=== PATIENT | female | born 1945 | race Caucasian/White ===

== ENCOUNTER → 2016-05-23 | Outpatient (REF) | payer MEDICARE ==
[~2016-05-23] MED LIST: CIPR500T3 PO; PERCOCET PO
== END | disposition home or self-care (01) ==
LOC: M SMT 17:15
PROVIDERS: ATTEND Urology
DX: C67.9 Malignant neoplasm of bladder, unspecified (principal)

== ENCOUNTER → 2016-06-30 | Outpatient (CLI) | payer MEDICARE ==
--- NOTE | 2016-06-30 16:51 | REP ---
Clinical: Lung screening. History smoking. Technique: Axial noncontrast low-dose imaging from the thoracic inlet to the upper abdomen using lung screening technique. Findings: The bilateral lung metcalf are well-aerated and without consolidation, nodule or mass lesion. Minimal scattered chronic changes are appreciated along with very subtle non solid ground-glass opacity in the anterior right upper lobe and left lower lobe. Tracheobronchial tree is patent. No pleural effusion or pneumothorax. Mediastinum is grossly unremarkable although atherosclerotic changes to the coronary arteries is noted. Impression: Lung-RADS category II. Subtle nonsolid opacity in the RUL and LLL may warrant annual screening. Signed by Nando Kline MD 06/30/2016 04:43 P
== END ==
LOC: M RAD 15:43
PROVIDERS: ATTEND Family Medicine
DX: F17.210 Nicotine dependence, cigarettes, uncomplicated (principal)

== ENCOUNTER → 2016-08-29 | Outpatient (REF) | payer MEDICARE | LOC: M SMT 16:57 | PROVIDERS: ATTEND Urology | DX: C67.9 Malignant neoplasm of bladder, unspecified (principal) ==

== ENCOUNTER → 2016-09-20 | Outpatient (CLI) | payer MEDICARE ==
--- NOTE | 2016-09-20 12:53 | REP ---
CT of the chest without IV contrast: Comparisons 06/30/2016. There is a 10 mm ground-glass density in the right upper lobe on image 37, not significantly changed. There is a 13 mm ground-glass density in the left lower lobe on image 68, not significantly changed. There are no other nodules or masses. There are no acute infiltrates or effusions. There are numerous bulla throughout the lung metcalf bilaterally compatible with bullous emphysema. There is no mediastinal adenopathy or axillary adenopathy. In the absence of IV contrast the study is insensitive for hilar adenopathy. Thoracic aorta is unremarkable. Cardiac size normal. The visualized upper abdominal contents are unremarkable. There is no adrenal mass. Impression: Right upper lobe left lower lobe ground-glass densities, not significantly changed. These are considered Category [address] surveillance is recommended. Signed by Logan Lopez MD 09/20/2016 12:45 P
== END ==
LOC: M RAD 08:59
PROVIDERS: ATTEND Internal Medicine Pulmonary Disease
DX: R91.8 Other nonspecific abnormal finding of lung field (principal)

== ENCOUNTER → 2016-11-28 | Outpatient (REF) | payer MEDICARE | LOC: M SMT 17:01 | PROVIDERS: ATTEND Urology | DX: C67.9 Malignant neoplasm of bladder, unspecified (principal) ==

== ENCOUNTER → 2016-12-29 | Outpatient (CLI) | payer MEDICARE ==
--- NOTE | 2016-12-29 17:40 | REP ---
ULTRASOUND LEFT NECK SOFT TISSUES: Real-time sonographic evaluation of the left neck soft tissues performed in the region of a reported palpable abnormality. There is a hypoechoic nodule with internal blood flow with duplex Doppler evaluation. It is oval in shape and probably represents a lymph node. It measures 8 x 3 x 7 mm. Left parotid gland is visualized and demonstrates no definite internal nodule. Incidental note is made of a nodule in the left lobe of the thyroid which has an approximate diameter of 6 mm. IMPRESSION: At the site of the reported palpable abnormality there appears to be a nonenlarged lymph node. Signed by Logan Nicole MD 12/29/2016 05:45 P
== END ==
LOC: M RAD 13:46
PROVIDERS: ATTEND Family Medicine
DX: R22.1 Localized swelling, mass and lump, neck (principal)

== ENCOUNTER → 2017-03-06 | Outpatient (REF) | payer MEDICARE | LOC: M SMT 17:09 | PROVIDERS: ATTEND Urology | DX: Z85.51 Personal history of malignant neoplasm of bladder (principal) ==

== ENCOUNTER → 2017-06-28 | Outpatient (CLI) | payer MEDICARE ==
[2017-06-28 10:00] LABS: ANION GAP 6 MEQ/L (8-16); BLOOD UREA NITROGEN 20 MG/DL (7-18); CALCIUM LEVEL 9.2 MG/DL (8.8-10.2); CARBON DIOXIDE LEVEL 30 MEQ/L (21-32); CHLORIDE LEVEL 103 MEQ/L (98-107); CHOLESTEROL LEVEL 227 MG/DL (<200); CHOLESTEROL RISK RATIO 5.044 (<5); GLOMERULAR FILTRATION RATE > 60.0 (>39); GLUCOSE, FASTING 93 MG/DL (70-100); HDL CHOLESTEROL 45 MG/DL (>40); LDL CHOLESTEROL 147.8 MG/DL (<100); NON-HDL-C 182 MG/DL; POTASSIUM SERUM 4.1 MEQ/L (3.5-5.1); SODIUM LEVEL 139 MEQ/L (136-145); TRIGLYCERIDES LEVEL 171 MG/DL (<150)
== END ==
LOC: M LAB 09:04
DX: I10 Essential (primary) hypertension (principal)

== ENCOUNTER → 2017-06-28 | Outpatient (CLI) | payer MEDICARE | LOC: M RAD 07:48 | DX: Z12.31 Encounter for screening mammogram for malignant neoplasm of breast (principal); R92.8 Other abnormal and inconclusive findings on diagnostic imaging of breast; Z78.0 Asymptomatic menopausal state; Z80.0 Family history of malignant neoplasm of digestive organs; Z80.3 Family history of malignant neoplasm of breast; Z98.890 Other specified postprocedural states; I10 Essential (primary) hypertension | CPT/HCPCS: 77067 ==

== ENCOUNTER 2017-07-19 06:57 | Day surgery (SDC) | payer MEDICARE ==
[2017-07-19] MEDS: NS 1,000 ML IV (07:15)
[2017-07-19] MEDS ORDERED: PROPOFOL 200 MG/20 ML VIAL As Ordered ×2 (08:03→08:14)
== END 2017-07-19 08:59 | disposition home or self-care (01) ==
LOC: M OPP 06:57
DX: Z12.11 Encounter for screening for malignant neoplasm of colon (principal); Z86.010 Personal history of colon polyps; D12.0 Benign neoplasm of cecum; D12.3 Benign neoplasm of transverse colon; K57.30 Diverticulosis of large intestine without perforation or abscess without bleeding; I10 Essential (primary) hypertension; E78.5 Hyperlipidemia, unspecified; Z85.51 Personal history of malignant neoplasm of bladder; Z92.21 Personal history of antineoplastic chemotherapy; K57.32 Diverticulitis of large intestine without perforation or abscess without bleeding; M48.00 Spinal stenosis, site unspecified; F17.210 Nicotine dependence, cigarettes, uncomplicated; F12.10 Cannabis abuse, uncomplicated; Z88.8 Allergy status to other drugs, medicaments and biological substances; Z79.899 Other long term (current) drug therapy; Z80.0 Family history of malignant neoplasm of digestive organs; Z80.3 Family history of malignant neoplasm of breast; Z80.51 Family history of malignant neoplasm of kidney; Z80.52 Family history of malignant neoplasm of bladder; Z80.42 Family history of malignant neoplasm of prostate; Z80.1 Family history of malignant neoplasm of trachea, bronchus and lung; Z80.49 Family history of malignant neoplasm of other genital organs; Z80.8 Family history of malignant neoplasm of other organs or systems
CPT/HCPCS: 45385

== ENCOUNTER → 2017-09-18 | Outpatient (CLI) | payer OTHER, MEDICARE | LOC: M RAD 10:53 | DX: R91.8 Other nonspecific abnormal finding of lung field (principal) | CPT/HCPCS: 71250 ==

== ENCOUNTER → 2018-04-05 | Outpatient (REF) | payer OTHER ==
[~2018-04-05] MED LIST changes: +CARV6.25 PO; +HYDR-3713; +LOSA100T5 PO; +PRAV20TA2 PO
== END ==
LOC: M SMT 16:23
PROVIDERS: ATTEND Nurse Practitioner Family
DX: C67.9 Malignant neoplasm of bladder, unspecified (principal)
CPT/HCPCS: 88108; G0463

== ENCOUNTER → 2018-04-25 | Outpatient (CLI) | payer MEDICARE ==
[2018-04-25 13:41] LABS: BASO % 0.3 % (0.0-1.0); EOS # 0.2 10^3/uL (0.0-0.50); EOS % 1.4 % (0.0-3.0); HEMATOCRIT 40.9 % (36.0-47.0); HEMOGLOBIN 13.9 g/dl (12.0-15.5); LYMPH # 2.9 10^3/uL (1.5-4.5); LYMPH % 25.7 % (24.0-44.0); MEAN CORPUSCULAR HEMOGLOBIN 31.8 pg (27.0-33.0); MEAN CORPUSCULAR VOLUME 93.6 fl (80.0-96.0); MONO # 0.8 10^3/uL (0.0-0.8); MONO % 7.4 % (0.0-5.0); NEUTROPHILS # 7.3 10^3/uL (1.8-7.7); NEUTROPHILS % 64.8 % (36.0-66.0); PLATELET COUNT, AUTOMATED 263 10^3/uL (150-450); RED BLOOD COUNT 4.37 10^6/uL (4.00-5.40); WHITE BLOOD COUNT 11.3 10^3/uL (4.0-10.0)
[2018-04-25 13:59] LABS: ALBUMIN 4.3 GM/DL (3.2-5.2); ALT/SGPT 17 U/L (12-78); BILIRUBIN,TOTAL 0.4 MG/DL (0.2-1.0); BLOOD UREA NITROGEN 20 MG/DL (7-18); CALCIUM LEVEL 9.6 MG/DL (8.8-10.2); CARBON DIOXIDE LEVEL 29 MEQ/L (21-32); CHLORIDE LEVEL 101 MEQ/L (98-107); CREATININE FOR GFR 0.86 MG/DL (0.55-1.30); GLOMERULAR FILTRATION RATE > 60.0 (>39); GLUCOSE, FASTING 101 MG/DL (70-100); POTASSIUM SERUM 3.8 MEQ/L (3.5-5.1); SODIUM LEVEL 137 MEQ/L (136-145); TOTAL PROTEIN 7.8 GM/DL (6.4-8.2)
== END ==
LOC: M SMT 09:39
PROVIDERS: ATTEND Urology Pediatric Urology
DX: C67.5 Malignant neoplasm of bladder neck (principal)

== ENCOUNTER → 2018-05-16 | Outpatient (CLI) | payer MEDICARE ==
[2018-05-16 14:36] LABS: INR 0.94; PROTHROMBIN TIME 12.7 SECONDS (12.1-14.4)
[2018-05-16 14:37] LABS: PARTIAL THROMBOPLASTIN TIME 33.6 SECONDS (25.4-37.6)
--- NOTE | 2018-05-17 03:52 | REP ---
Clinical: Bladder neoplasm. Preoperative assessment . Comparison: 02/02/2016 . Technique: PA and lateral. Findings: The mediastinum and cardiac silhouette are normal. The lung metcalf are clear and without acute consolidation, effusion, or pneumothorax. The skeletal structures are intact and normal. Impression: 1. No acute cardiopulmonary process. Electronically Signed by Nando Kline MD 05/17/2018 03:43 A
== END ==
LOC: M SMT 10:14
PROVIDERS: ATTEND Urology Pediatric Urology
DX: C67.5 Malignant neoplasm of bladder neck (principal)

== ENCOUNTER → 2018-05-28 | Outpatient (CLI) | payer MEDICARE ==
[~2018-05-28] MED LIST changes: +ISOVUE-370 76% 100ML VIAL (Q9967) As Ordered ONE; +PYRI1TAB5 PO; +TYLE500T78 PO
--- NOTE | 2018-05-29 03:57 | REP ---
Clinical: Urinary bladder cancer. Technique: Axial contrast enhanced images from the thoracic inlet to the upper abdomen with coronal and sagittal re-formations using 100 ml Isovue 370 intravenous contrast material. Comparison: 09/18/2017. Findings: Moderate age-related interstitial changes and mild emphysematous changes including lower lobe bronchiectasis are again noted and similar to prior examination. No acute focal consolidation, significant nodule or mass lesion identified. No pleural effusion. No pneumothorax. Tracheobronchial tree is patent. Nonspecific mediastinal and right hilar lymph nodes measure up to 9.5 mm short axis diameter and remain essentially unchanged. Thoracic aorta, pulmonary vasculature and heart/pericardium are essentially normal for age. No evidence for aneurysm, dissection, cardiomegaly or pericardial effusion. Surrounding musculoskeletal structures without focal osseous abnormality. Impression: 1. Moderate chronic age-related interstitial changes and emphysematous disease with mild bronchiectasis. 2. No acute mediastinal or pleuroparenchymal process appreciated. Specifically, no obvious adenopathy, effusion, nodule or mass lesion identified. Electronically Signed by Nando Kline MD 05/29/2018 03:49 A
--- NOTE | 2018-05-29 04:06 | REP ---
Clinical: Urinary bladder cancer. Technique: Axial precontrast, contrast enhanced, and delayed images of the abdomen and pelvis using oral (per protocol) and 100 ml Isovue 370 intravenous contrast material. Automated dose lowering techniques and/or adjustment according to patient's size were utilized. Comparison: 01/14/2016 Findings: Evaluation of the urinary tract system suggests eight and 2 mm enhancing nodule along the right posterior bladder trigone (best identified on contrast enhanced image 117 and delayed series image 118) which warrants further investigation. The bilateral kidneys and ureters appear normal. Liver, spleen, pancreas, gallbladder, bilateral adrenal glands are normal. The enteric system including stomach, small and large bowel is without obstruction or acute inflammatory process. Normal terminal ileum and cecum identified in the right lower quadrant. Sigmoid diverticulosis noted without acute diverticulitis. Further evaluation the pelvis demonstrates prior hysterectomy. No pelvic fluid or ascites. No free air. No adenopathy. Atherosclerotic changes to the aorta and vasculature noted without aneurysm. Surrounding musculoskeletal structures demonstrate age-related changes without focal osseous abnormality. Impression: 1. 2 mm enhancing soft tissue nodule along the right posterior bladder wall warrant further investigation and follow-up. No other urinary tract pathology is appreciated. No ascites or adenopathy identified. 2. Evidence of prior hysterectomy. 3. Sigmoid diverticulosis without acute diverticulitis. Electronically Signed by Nando Kline MD 05/29/2018 03:58 A
== END ==
LOC: M RAD 07:45
PROVIDERS: ATTEND Urology Pediatric Urology
DX: C67.5 Malignant neoplasm of bladder neck (principal); K57.30 Diverticulosis of large intestine without perforation or abscess without bleeding; J43.9 Emphysema, unspecified; J47.9 Bronchiectasis, uncomplicated
CPT/HCPCS: 71260; 74178; G0463; Q9967

== ENCOUNTER 2018-05-29 05:50 | Day surgery (SDC) | payer MEDICARE ==
[~2018-05-29] VITALS: Ht 157.5 cm; Wt 53.1 kg
[~2018-05-29 05:50] MED LIST changes: -ISOVUE-370 76% 100ML VIAL (Q9967) As Ordered ONE; -PYRI1TAB5 PO; -TYLE500T78 PO
[2018-05-29] MEDS ORDERED: GENTAMICIN 100 MG in APPROPRIATE DILUENT 1 EA IV ONE (06:00)
[2018-05-29] MEDS ORDERED: LR 1,000 ML IV ONE (06:00)
[2018-05-29] MEDS ORDERED: CIPROFLOXACIN 400 MG in APPROPRIATE DILUENT 1 EA IV ONE (06:00)
[2018-05-29] MEDS ORDERED: LIDOCAINE 2% 5ML JELLY UROJET As Ordered ONE ×2 (06:55→08:39)
[2018-05-29] MEDS ORDERED: CONRAY-60 60% 50ML VIAL (Q9961) As Ordered ONE (06:55)
[2018-05-29] MEDS ORDERED: LIDOCAINE 2% INJ 100 MG/5 ML SDV (FOR ANES.) As Ordered ONE (07:16)
[2018-05-29] MEDS ORDERED: PROPOFOL 200 MG/20 ML VIAL As Ordered ONE (07:16)
[2018-05-29] MEDS ORDERED: fentaNYL 100 MCG/2 ML INJECTION (J3010) As Ordered ONE (07:16)
[2018-05-29] MEDS ORDERED: ONDANSETRON 4MG/2ML VIAL (J2405) As Ordered ONE (07:16)
[2018-05-29] MEDS ORDERED: ROCURONIUM BROMIDE 50 MG/5 ML VIAL As Ordered ONE (07:16)
[2018-05-29] MEDS ORDERED: METOCLOPRAMIDE INJ 10MG/2ML VIAL (J2765) As Ordered ONE (07:16)
[2018-05-29] MEDS ORDERED: MIDAZOLAM INJ 2 MG/2 ML VIAL (J2250) As Ordered ONE (07:16)
[2018-05-29] MEDS ORDERED: mitoMYcin 40MG VIAL (J9280 PER 5MG) INTRAVESIC ONE (08:00)
--- NOTE | 2018-05-29 09:04 | ROOPDOC ---
[facility] Report Of Operation Report of Operation DATE OF PROCEDURE: 05/29/18 PREPROCEDURE DIAGNOSES: right bladder mass (medial to the right ureter). POSTPROCEDURE DIAGNOSES: same; s/p TURBT. PROCEDURE: TURBT, retrograde pyelogram, mitomycin instillation (40mg/50ml). SURGEON: Opal Etienne MD [facility] JOSUE ANESTHESIA: see anesthesia record. ESTIMATED BLOOD LOSS: Approximately 5 mL. COMPLICATIONS: none. REMARKS/findings: trigonitis; right lateral bladder mass; normal retrograde SPECIMEN: bladder tumor DESCRIPTION OF PROCEDURE: After informed consent with patient and her , the patient was brought to the operating room suite where a routine time out was completed with the stakeholders of care for the patient. Pt was placed in the lithotomy position. The 24f loop resectoscope easily entered the urethra and was used to resect the tumor precisely and was sent of the table to pathology. Retrogrades were performed without evidence of stationary filling defect. 50ml of mitomycin was then instilled. Pt had a diaper pad place just in case she voids prior to the time expected to keep the medication in place. post void residual is expected to obtained in 1 2 and 3 hours from now (9am, current time). Opal Etienne MD May 29, 2018 09:04
--- NOTE | 2018-05-29 09:10 | REP ---
RETROGRADE PYELOGRAM, FOUR VIEWS: HISTORY: Bladder tumor. Bilateral retrograde pyelograms were performed. There are no definite filling defects in the renal collecting systems. There is no hydronephrosis. Fluoro time 11 seconds. IMPRESSION: Retrograde pyelogram as described. Electronically Signed by Blaine Astudillo MD 05/29/2018 09:15 A
[2018-05-29] MEDS ORDERED: PYRI1TAB5 PO (09:16)
[2018-05-29] MEDS ORDERED: TYLE500T78 PO (09:16)
[2018-05-29] MEDS ORDERED: CIPR500T3 PO (09:16)
[2018-05-29] MEDS ORDERED: LR 1,000 ML IV SCH (09:45)
[2018-05-29] MEDS ORDERED: fentaNYL 100 MCG/2 ML INJECTION (J3010) IV PRN (09:45)
[2018-05-29] MEDS ORDERED: ONDANSETRON 4MG/2ML VIAL (J2405) IV PRN (09:45)
[2018-05-29] MEDS ORDERED: PERCOCET 5MG/325MG TAB PO PRN (09:45)
[2018-05-29] MEDS ORDERED: ACETAMINOPHEN TAB 650MG DOSE (2X325MG) As Ordered ONE (09:58)
[2018-05-29] MEDS ORDERED: ACETAMINOPHEN TAB 650MG DOSE (2X325MG) PO ONE (10:00)
[2018-05-29 11:26] VITALS: BP 147/67
== END 2018-05-29 11:28 | disposition home or self-care (01) ==
LOC: M SDC 05:50
PROVIDERS: ATTEND Urology Pediatric Urology
DX: C67.9 Malignant neoplasm of bladder, unspecified (principal); N30.30 Trigonitis without hematuria; I10 Essential (primary) hypertension; E78.00 Pure hypercholesterolemia, unspecified; J44.9 Chronic obstructive pulmonary disease, unspecified; K57.32 Diverticulitis of large intestine without perforation or abscess without bleeding; M48.00 Spinal stenosis, site unspecified; R06.02 Shortness of breath; Z88.8 Allergy status to other drugs, medicaments and biological substances; Z79.899 Other long term (current) drug therapy; Z87.891 Personal history of nicotine dependence; Z92.21 Personal history of antineoplastic chemotherapy; Z90.710 Acquired absence of both cervix and uterus
CPT/HCPCS: 36415; 51720; 52224; 74420; 86850; 86900; 86901; 88307; J0744; J1580; J2250; J2405; J2765; J3010; J9280; Q9961

== ENCOUNTER → 2018-06-05 | Outpatient (REF) | payer MEDICARE ==
[~2018-06-05] MED LIST changes: +PYRI1TAB5 PO; +TYLE500T78 PO
== END ==
LOC: M SMT 13:12
PROVIDERS: ATTEND Urology Pediatric Urology
DX: C67.9 Malignant neoplasm of bladder, unspecified (principal); I10 Essential (primary) hypertension; Z79.899 Other long term (current) drug therapy
CPT/HCPCS: 51798; 87086; G0463

== ENCOUNTER → 2018-07-31 | Outpatient (CLI) | payer MEDICARE ==
--- NOTE | 2018-07-31 11:28 | REPMRS ---
Patient History The patient states she has not had a clinical breast exam in over a year. Family history of colorectal cancer at age 50 or over in mother, colorectal cancer at age 50 or over in father, breast cancer at age 50 or over in sister, unknown cancer in brother, unknown cancer in brother, unknown cancer in brother, unknown cancer in brother, unknown cancer in brother. Benign radio exam breast specimen, November 23, 2011. Benign localization of breast nodule of the left breast, November 23, 2011. Benign US guided breast biopsy of the left breast, October 20, 2011. 3D TOMOSYNTHESIS WAS PERFORMED. Digital Mammo Screening Bilat: July 31, 2018 - Exam #: [id number] Bilateral CC and MLO view(s) were taken. Technologist: Caren Purdyologist Prior study comparison: June 28, 2017, bilateral digital mammo screening bilat performed at [facility]. February 26, 2013, bilateral digital mammo screening bilat performed at [facility]. FINDINGS: There are scattered fibroglandular densities. There is a fairly symmetric fibroglandular pattern in both breasts. There has been no interval development of masses, areas of architectural distortion or clusters of microcalcifications typical of malignancy. Assessment: BI-RADS/ACR category 2 mammogram. Benign Findings. Recommendation Routine screening mammogram of both breasts in 1 year (for women over age 40). This mammogram was interpreted with the aid of an FDA-approved computer-aided dectection system. Electronically Signed By: Logan Nicole MD 07/31/18 [id number]
== END ==
LOC: M RAD 10:27
PROVIDERS: ATTEND Family Medicine
DX: Z12.31 Encounter for screening mammogram for malignant neoplasm of breast (principal); Z80.3 Family history of malignant neoplasm of breast

== ENCOUNTER 2018-09-15 16:02 | Emergency (ER) | payer MEDICARE ==
[~2018-09-15] VITALS: Ht 157.5 cm; Wt 55.9 kg
[~2018-09-15 16:02] MED LIST changes: -HYDR-4517 PO; -VALI5TAB PO
[2018-09-15] MEDS ORDERED: diazePAM 5 MG TAB PO ONE (16:45)
[2018-09-15] MEDS ORDERED: KETOROLAC 60 MG/2 ML VIAL (J1885) IM ONE (16:45)
--- NOTE | 2018-09-15 17:08 | REP ---
CT lumbar spine without contrast History: Injury There is no disc bulge or herniation at the L1-2 level. There is hypertrophy of the posterior articulating facets. The L1 nerves exit the neural foramina without compression. A diffuse disc bulge is present at the L2-3 level. There is hypertrophy of the ligamenta flava and posterior articulating facets. These findings produce moderate central canal stenosis. The L2 nerves exit the neural foramina without compression. A diffuse disc bulge is present at the L3-4 level. There is hypertrophy of the ligamenta flava and posterior articulating facets. These findings produce moderate central canal stenosis. The L3 nerves exit the neural foramina without compression. A diffuse disc bulge and small disc extrusion central and eccentric to the right are present at the L4-5 level. There is inferior migration of disc material. There is hypertrophy of the ligamenta flava and posterior articulating facets. These findings produce moderate central canal stenosis. The L4 nerves exit the neural foramina without compression. A diffuse disc bulge is present at the L5-L1 level. There is minimal compression of the thecal sac. There is hypertrophy of the posterior articulating facets. There is compression of the L5 nerves in the neural foramina. There is an acute compression fracture at the superior endplate of the L2 vertebral body with minimal height loss. There is no subluxation. The L2-3 through L5-L1 intervertebral discs are decreased in height. Vacuum phenomenon is present at the L4-5 level. These findings are consistent with disc degeneration. Impression: 1. Moderate central canal stenosis at the L2-3 and L3-4 levels secondary to disc bulge, ligamentous and facet hypertrophy. 2. Moderate central canal stenosis at the L4-5 level secondary to disc bulge, disc extrusion, ligamentous and facet hypertrophy. 3. Diffuse disc bulge at the L5-L1 level with minimal thecal sac compression. There is compression of the L5 nerves in the neural foramina. 4. Acute superior endplate fracture of the L2 vertebral body with minimal height loss. There is no subluxation. Electronically Signed by Blaine Astudillo MD 09/15/2018 05:00 P
[2018-09-15] MEDS ORDERED: HYDR-4517 PO (18:22)
[2018-09-15] MEDS ORDERED: VALI5TAB PO (18:22)
[2018-09-15 18:36] VITALS: BP 139/65
--- NOTE | 2018-09-15 19:42 | REP ---
Bilateral hips AP pelvis five views History: Pain Comparison: 09/14/2011 There is no acute fracture or dislocation. There is minimal narrowing of the hip joint spaces. Impression: There is no acute fracture or dislocation. Electronically Signed by Blaine Astudillo MD 09/15/2018 07:34 P
--- NOTE | 2018-09-18 12:44 | ED PDOC ---
Post-Departure Follow-Up dr alexander faxed formal report of ct ls spine for fu Sabi John MD Sep 18, 2018 12:44
== END 2018-09-15 18:42 | disposition home or self-care (01) ==
LOC: M ED 16:02
DX: S32.029A Unspecified fracture of second lumbar vertebra, initial encounter for closed fracture (principal); X50.0XXA Overexertion from strenuous movement or load, initial encounter; Y92.89 Other specified places as the place of occurrence of the external cause; I10 Essential (primary) hypertension; J44.9 Chronic obstructive pulmonary disease, unspecified; M19.90 Unspecified osteoarthritis, unspecified site; K57.92 Diverticulitis of intestine, part unspecified, without perforation or abscess without bleeding; F17.210 Nicotine dependence, cigarettes, uncomplicated; Z88.8 Allergy status to other drugs, medicaments and biological substances; Z79.899 Other long term (current) drug therapy; M99.53 Intervertebral disc stenosis of neural canal of lumbar region; C67.9 Malignant neoplasm of bladder, unspecified; M54.42 Lumbago with sciatica, left side
CPT/HCPCS: 72131; 72148; 73521; 96372; 99283; J1885

== ENCOUNTER → 2018-09-15 | Outpatient (CLI) | payer MEDICARE ==
[~2018-09-15] MED LIST changes: +HYDR-4517 PO; +VALI5TAB PO
--- NOTE | 2018-09-15 12:46 | REP ---
MR LUMBAR SPINE WITHOUT CONTRAST: HISTORY: Radiculopathy. There is no disc bulge or herniation at the L1-2 level. There is hypertrophy of the ligamenta flava and posterior articulating facets. The L1 nerves exit the neural foramina without compression. A diffuse disc bulge is present at the L2-3 level. There is hypertrophy of the ligamenta flava and posterior articulating facets. These findings produce minimal central canal stenosis. The L2 nerves exit the neural foramina without compression. A diffuse bulge is present at the L3-4 level. There is hypertrophy of the ligamenta flava and posterior articulating facets. These findings produce mild central canal stenosis. The L3 nerves exit the neural foramina without compression. A diffuse disc bulge is present at the L4-5 level. There is hypertrophy of the ligamenta flava and posterior articulating facets. These findings produce moderate central stenosis. The L4 nerves exit the neural foramina without compression. A diffuse disc bulge is present at the L5-S1. There is minimal compression of the thecal sac. There is hypertrophy of the posterior articulating facets. There is compression of the L5 nerves in the neural foramina. The conus medullaris is normal in appearance terminating at the level of the T12-L1 intervertebral disc. Increased signal intensity on T2-weighted images is present in the endplates of the L3 through S1 vertebral bodies. This represent degenerative change. IMPRESSION: 1. Minimal central canal stenosis at the L2-3 level secondary to disc bulge, ligamentous and facet hypertrophy. 2. Mild central canal stenosis at the L3-4 level secondary to disc bulge, ligamentous and facet hypertrophy. 3. Moderate central canal stenosis at the L4-5 level secondary to disc bulge, ligamentous and facet hypertrophy. 4. Diffuse disc bulge at the L5-S1 level with minimal thecal sac compression. There is compression of the L5 nerves in the neural foramina. Electronically Signed by Blaine Astudillo MD 09/15/2018 12:55 P
== END ==
LOC: M RAD 09:56
PROVIDERS: ATTEND Family Medicine
DX: M99.53 Intervertebral disc stenosis of neural canal of lumbar region (principal); C67.9 Malignant neoplasm of bladder, unspecified; M54.42 Lumbago with sciatica, left side

== ENCOUNTER → 2018-11-14 | Outpatient (CLI) | payer MEDICARE ==
[~2018-11-14] MED LIST changes: +HYDR-4517 PO; +VALI5TAB PO
--- NOTE | 2018-11-21 15:30 | DEXA ---
AP SPINE L1 - L4 1.076 -1.0 0.7 LT FEMUR TOTAL 0.658 -2.8 -1.2 LT NECK 0.645 -2.8 -1.1 RT FEMUR TOTAL 0.637 -2.9 -1.4 RT NECK 0.612 -3.1 -1.3 TOTAL BODY TOTAL OTHER COMMENTS: There is low bone density of the spine. There is osteoporosis of the hips. FOLLOW-UP: Recommendation for the next bone density exam: 2 years. DAILY
== END ==
LOC: M WHC 15:06
PROVIDERS: ATTEND Family Medicine
DX: S32.028D Other fracture of second lumbar vertebra, subsequent encounter for fracture with routine healing (principal); Z78.0 Asymptomatic menopausal state

== ENCOUNTER → 2019-01-11 | Outpatient (REF) | payer MEDICARE | LOC: M SMT 11:06 | PROVIDERS: ATTEND Nurse Practitioner Women's Health | DX: N76.0 Acute vaginitis (principal) | CPT/HCPCS: 87070; 87077; 87210; G0463 ==

== ENCOUNTER → 2019-05-01 | Outpatient (REF) | payer MEDICARE ==
[2019-05-01 16:46] LABS: ALT/SGPT 13 U/L (12-78); BILIRUBIN,TOTAL 0.4 MG/DL (0.2-1.0); BLOOD UREA NITROGEN 16 MG/DL (7-18); CARBON DIOXIDE LEVEL 29 MEQ/L (21-32); CHLORIDE LEVEL 105 MEQ/L (98-107); CHOLESTEROL LEVEL 209 MG/DL (<200); CHOLESTEROL RISK RATIO 5.225 (<5); CREATININE FOR GFR 0.83 MG/DL (0.55-1.30); GLOMERULAR FILTRATION RATE > 60.0 (>39); GLUCOSE, FASTING 93 MG/DL (70-100); HDL CHOLESTEROL 40 MG/DL (>40); LDL CHOLESTEROL 140 MG/DL (<100); NON-HDL-C 169 MG/DL; POTASSIUM SERUM 3.9 MEQ/L (3.5-5.1); SODIUM LEVEL 140 MEQ/L (136-145); TOTAL PROTEIN 7.2 GM/DL (6.4-8.2); TRIGLYCERIDES LEVEL 144 MG/DL (<150)
== END ==
LOC: M SFHCCLAY 11:16
PROVIDERS: ATTEND Family Medicine
DX: I10 Essential (primary) hypertension (principal); M81.0 Age-related osteoporosis without current pathological fracture; E78.2 Mixed hyperlipidemia; Z23 Encounter for immunization
CPT/HCPCS: 80053; 80061; 84443; 90732; G0009

== ENCOUNTER → 2019-06-26 | Outpatient (CLI) | payer MEDICARE ==
--- NOTE | 2019-06-26 19:51 | REP ---
Clinical: Right hip pain. Technique: Neutral and frog lateral views of the right hip. Findings: Generalized age-related osteopenia and degenerative changes are noted including mild increased sclerosis to the acetabulum with minimal joint space narrowing and marginal spurring. No acute fracture dislocation. Surrounding soft tissues are unremarkable. Impression: Mild age-related degenerative changes. Electronically Signed by Nando Kline MD 06/26/2019 07:44 P
== END ==
LOC: M CLY 11:51
PROVIDERS: ATTEND Family Medicine
DX: M16.11 Unilateral primary osteoarthritis, right hip (principal); M25.551 Pain in right hip
CPT/HCPCS: 73502; G0463

== ENCOUNTER → 2019-08-02 | Outpatient (CLI) | payer MEDICARE ==
--- NOTE | 2019-08-02 11:54 | REP ---
MRI LUMBAR SPINE WITHOUT CONTRAST: COMPARISON: 09/15/2018 TECHNIQUE: Multiple sequences obtained in sagittal and axial planes. New compression deformity is noted of L2. There is no acute marrow edema and, therefore, this is not an acute compression fracture. There is no retropulsion of fracture fragments. Loss of height is approximately 40%. No other compression fracture is seen of the vertebral bodies, which are well aligned. There is diffuse loss of water signal and disc degeneration with mild disc space narrowing at L2-3, L3-4, and a more moderate degree of disc space narrowing at L4-5 and L5-S1. Degenerative signal is seen along the vertebral body endplates of L2 through S1. Conus is unremarkable. At the L1-2 level, there is mild diffuse disc bulging. There is mild hypertrophic change at the posterior facet joints and hypertrophy of the ligamentum flavum. There is mild impression upon the thecal sac without significant canal stenosis. There is no foraminal narrowing. The disc bulging is new compared to the prior study. At L2-3, there is mild diffuse disc bulging with moderate hypertrophic change at the posterior facts and hypertrophy of the ligamentum flavum. There is minimal central canal stenosis without foraminal narrowing. At L3-4, there is mild diffuse disc bulging. There is moderate hypertrophic change at the posterior facets and hypertrophy of the ligamentum flavum. There is mild central canal stenosis, unchanged. There is no foraminal narrowing. At L4-5, there is moderate diffuse disc bulging. There is moderate hypertrophic change at the posterior facets and hypertrophy of the ligamentum flavum. There is moderate central canal stenosis. There is not significant foraminal narrowing. At L5-S1, there is moderate diffuse disc bulging. There is mild hypertrophic change at the posterior facets and hypertrophy of ligamentum flavum. There is minimal compression of the thecal sac. There is moderate bilateral foraminal narrowing, unchanged. IMPRESSION: Multilevel disc bulging, as discussed in detail above. Mild central canal stenosis at L3-4 with moderate central canal stenosis at L4-5. Moderate bilateral foraminal narrowing L5-S1. Hypertrophic changes of posterior facet joints and ligamentum flavum diffusely. The findings are essentially unchanged since the prior study of 09/15/2018, except for new mild disc bulging at L1-2 and a new nonacute compression deformity of L2 since the prior study. Electronically Signed by Logan Nicole MD 08/02/2019 11:59 A
--- NOTE | 2019-08-02 13:19 | REP ---
REASON FOR EXAM: Chronic hip pain and unsteady gait. No prior right hip MRI examination for comparison. The femoral heads are spherical in shape and symmetric in appearance. No abnormal focal chondral or subchondral signal is seen arising from the femoral or acetabular component of either hip. There is no hip joint effusion. There is mild asymmetric hip joint space narrowing bilaterally. The cortical and marrow signal seen throughout the osseous structures is within normal limits. There is minimal T2 hypersignal seen in the trochanteric tendino-bursal region of each hip. There is minimal T2 hypersignal seen along the iliac side of the iliacus muscle bilaterally. The signal and morphologic appearance throughout the remainder of the musculature is within normal limits. There is no evidence of a mass or mass effect. There is no evidence of gross labral pathology. IMPRESSION: 1. Slight T2 hypersignal seen in the trochanteric tendino-bursal region of each hip, right slightly greater than left. The significance of which is questionable, but should be correlated clinically. 2. Very slight T2 hypersignal consistent with minimal edema in the distal iliacus muscle bilaterally, as described above, seen only on the large field of view coronal T2-weighted images. The significance of this finding is questionable and needs to be correlated clinically. Certainly, muscular strain could be responsible for the finding. 3. Bilateral hip degenerative changes, as described above. 4. Other findings as described above. Electronically Signed by Mynor Llanos DO 08/02/2019 02:57 P
== END ==
LOC: M RAD 07:26
PROVIDERS: ATTEND Pain Medicine Interventional Pain Medicine
DX: M25.551 Pain in right hip (principal); M54.16 Radiculopathy, lumbar region

== ENCOUNTER 2019-12-19 21:42 | Emergency (ER) | payer MEDICARE ==
[~2019-12-19] VITALS: Ht 157.5 cm; Wt 56.8 kg
[2019-12-19] MEDS ORDERED: GABA-843 PO (22:16)
[2019-12-19] MEDS ORDERED: TELM1TAB37 PO (22:16)
[2019-12-19 22:44] LABS: BASO % 0.3 % (0.0-1.0); EOS # 0.1 10^3/uL (0.0-0.5); EOS % 1.5 % (0.0-3.0); HEMATOCRIT 37.4 % (36.0-47.0); HEMOGLOBIN 12.7 g/dl (12.0-15.5); LYMPH # 2.6 10^3/uL (1.5-5.0); LYMPH % 30.3 % (24.0-44.0); MEAN CORPUSCULAR HEMOGLOBIN 32.3 pg (27.0-33.0); MEAN CORPUSCULAR VOLUME 95.2 fl (80.0-96.0); MONO # 0.7 10^3/uL (0.0-0.8); MONO % 8.3 % (0.0-5.0); NEUTROPHILS # 5.1 10^3/uL (1.5-8.5); NEUTROPHILS % 59.1 % (36.0-66.0); PLATELET COUNT, AUTOMATED 220 10^3/uL (150-450); RED BLOOD COUNT 3.93 10^6/uL (4.00-5.40); WHITE BLOOD COUNT 8.6 10^3/uL (4.0-10.0)
[2019-12-19 22:54] LABS: INR 0.98; PROTHROMBIN TIME 13.2 SECONDS (11.8-14.0)
[2019-12-19 22:55] LABS: PARTIAL THROMBOPLASTIN TIME 30.6 SECONDS (25.0-38.4)
--- NOTE | 2019-12-19 22:55 | REPVR ---
PROCEDURE INFORMATION: Exam: CT Head Without Contrast Exam date and time: 12/19/2019 10:39 PM Age: 74 years old Clinical indication: Dizziness; Additional info: Hypertensive urgency, dizziness TECHNIQUE: Imaging protocol: Computed tomography of the head without contrast. Radiation optimization: All CT scans at this facility use at least one of these dose optimization techniques: automated exposure control; mA and/or kV adjustment per patient size (includes targeted exams where dose is matched to clinical indication); or iterative reconstruction. COMPARISON: CT Head without contrast 2014-06-25 08:57 FINDINGS: Brain: Normal. No hemorrhage. Unremarkable white matter. No mass effect. Ventricles: Normal. No ventriculomegaly. Bones/joints: Unremarkable. No acute fracture. Sinuses: Visualized sinuses are unremarkable. No fluid levels. Mastoid air cells: Visualized mastoid air cells are well aerated. Soft tissues: Unremarkable. IMPRESSION: No acute intracranial abnormality. Electronically signed by: Live Conteh On 12/19/2019 22:54:47 PM
[2019-12-19 23:22] LABS: BLOOD UREA NITROGEN 19 MG/DL (7-18); CALCIUM LEVEL 8.7 MG/DL (8.8-10.2); CARBON DIOXIDE LEVEL 29 MEQ/L (21-32); CHLORIDE LEVEL 109 MEQ/L (98-107); CK-MB VALUE MASS < 1.0 NG/ML (<3.6); CPK CREATINE PHOSPHOKINASE 62 U/L (26-192); CREATININE FOR GFR 0.75 MG/DL (0.55-1.30); GLOMERULAR FILTRATION RATE > 60.0 (>39); GLUCOSE, FASTING 100 MG/DL (70-100); MB/CK RELATIVE INDEX 1.61 (< OR =4); POTASSIUM SERUM 3.6 MEQ/L (3.5-5.1); SODIUM LEVEL 140 MEQ/L (136-145); TROPONIN I < 0.02 NG/ML (< 0.10)
[2019-12-20 00:14] LABS: APPEARANCE, URINE CLEAR (CLEAR); BACTERIA, URINE AUTO 1+ (NEGATIVE); BILIRUBIN, URINE AUTO NEGATIVE (NEGATIVE); BLOOD, URINE BLOOD 1+ (NEGATIVE); COLOR, URINE YELLOW (YELLOW); GLUCOSE, URINE (UA) AUTO NEGATIVE (NEGATIVE); KETONE, URINE AUTO NEGATIVE (NEGATIVE); LEUKOCYTE ESTERASE, URINE AUTO NEGATIVE (NEGATIVE); MUCUS, URINE SMALL (NEGATIVE); NITRITE, URINE AUTO NEGATIVE (NEGATIVE); PROTEIN, URINE AUTO NEGATIVE (NEGATIVE); RBC, URINE AUTO 3 /HPF (0-3); SPECIFIC GRAVITY URINE AUTO 1.014 (1.002-1.035); SQUAMOUS EPITHELIAL CELL UR AU 1 /HPF (0-6); WBC, URINE AUTO 2 /HPF (0-3)
[2019-12-20 00:45] VITALS: BP 138/92
--- NOTE | 2019-12-24 19:24 | ECGEPIP ---
[facility] - ED Test Date: 2019-12-19 Pat Name: LALO GARIBAY Department: Room: - Gender: Female [employer] Teacher: michael : 1945 Requested By: MARA Navarro Order Number: [id number] Reading MD: Dmitriy Wilson Measurements Intervals [place] Rate: 67 P: 54 [place]: 155 QRS: 91 QRSD: 103 T: 47 QT: 401 QTc: 426 Interpretive Statements SINUS RHYTHM RIGHT AXIS DEVIATION INCOMPLETE RIGHT BUNDLE BRANCH BLOCK SEE SCANNED DOWNTIME REPORT
--- NOTE | 2020-01-10 07:41 | REP ---
PORTABLE CHEST X-RAY: CLINICAL: Chest pain. COMPARISON: 05/16/18 FINDINGS: Mediastinum and cardiac silhouette are normal. Lung metcalf are relatively clear. Trace left basilar atelectasis versus chronic scarring cannot be excluded or distinguished. No further consolidation, effusion or pneumothorax. Skeletal structures are intact. IMPRESSION: No focal consolidation. Cannot exclude trace left basilar atelectasis versus chronic change. MTDD
== END 2019-12-20 01:12 | disposition home or self-care (01) ==
LOC: M ED 21:42
DX: I10 Essential (primary) hypertension (principal); I45.10 Unspecified right bundle-branch block; E78.5 Hyperlipidemia, unspecified; J44.9 Chronic obstructive pulmonary disease, unspecified; Z87.442 Personal history of urinary calculi; F17.210 Nicotine dependence, cigarettes, uncomplicated; Z88.8 Allergy status to other drugs, medicaments and biological substances; Z79.899 Other long term (current) drug therapy

== ENCOUNTER 2019-12-27 18:24 | Emergency (ER) | payer MEDICARE ==
[~2019-12-27 18:24] MED LIST changes: +GABA-843 PO; +TELM1TAB37 PO
[2019-12-27] MEDS ORDERED: ACETAMINOPHEN 500 MG TAB PO ONE (18:45)
[2019-12-27] MEDS ORDERED: CARVedilol 6.25 MG TAB PO ONE (18:45)
[2019-12-27] MEDS ORDERED: hydroCHLOROthiazide 12.5 MG CAPSULE PO ONE (18:45)
[2019-12-27 18:58] VITALS: BP 165/79
[2019-12-27] MEDS ORDERED: CARV6.25 PO (19:13)
[2019-12-27 21:00] VITALS: BP 145/76
--- NOTE | 2019-12-28 12:09 | ECGEPIP ---
[facility] - ED Test Date: 2019-12-27 Pat Name: LALO GARIBAY Department: Room: - Gender: Female Cnmt: RONAL : 1945 Requested By: Delaney Recio Order Number: [id number] Reading MD: Dmitriy Wilson Measurements Intervals [place] Rate: 65 P: 56 [place]: 146 QRS: 84 QRSD: 100 T: 46 QT: 408 QTc: 427 Interpretive Statements SINUS RHYTHM BORDERLINE RIGHT AXIS DEVIATION INCOMPLETE RIGHT BUNDLE BRANCH BLOCK SIMILAR TO 12/19/19 Electronically Signed on 12-28-2019 12:09:06 EDT by Dmitriy Wilson
== END 2019-12-27 21:11 | disposition home or self-care (01) ==
LOC: M ED 18:24
DX: I10 Essential (primary) hypertension (principal); E78.5 Hyperlipidemia, unspecified; J44.9 Chronic obstructive pulmonary disease, unspecified; F17.200 Nicotine dependence, unspecified, uncomplicated; Z79.899 Other long term (current) drug therapy; Z88.8 Allergy status to other drugs, medicaments and biological substances

== ENCOUNTER → 2020-01-10 | Outpatient (CLI) | payer MEDICARE ==
--- NOTE | 2020-01-20 10:10 | REP ---
LUMBAR SPINE SERIES: 5-VIEWS HISTORY: Low back pain. COMPARISON: Made with imaging from CT study lumbar spine 09/15/2018. FINDINGS: There is healing sclerosis and some anterior spurring at the site of the previously noted L2 wedge compression fracture deformity. There is approximately 15-20% loss of anterior vertebral body height at the L2 level. This is essentially unchanged from the 09/15/2018 prior study. There is straightening of the normal lumbar lordosis. Lumbar vertebral body heights are otherwise preserved. Diffuse degenerative disc disease is seen most pronounced at L4-5 and L5-S1 where there is vacuum phenomenon in the narrowed discs. Discogenic spurring is also present at L3-4. There is no evidence of spondylolysis or spondylolisthesis. There is osteoarthritic facet hypertrophy bilaterally at L5- S1 and L4-5. Sacrum and sacroiliac (SI) joints are intact. Psoas margins are symmetric. IMPRESSION: Degenerative spondylosis changes. Healed or healing wedge compression deformity at L2 unchanged from the 09/15/2018 prior study. MTDD
== END ==
LOC: M CLY 15:21
PROVIDERS: ATTEND Family Medicine
DX: M54.40 Lumbago with sciatica, unspecified side (principal); M51.36 Other intervertebral disc degeneration, lumbar region; M51.37 Other intervertebral disc degeneration, lumbosacral region; Z23 Encounter for immunization
CPT/HCPCS: 72110; 90682; G0008; G0463

== ENCOUNTER → 2020-02-14 | Outpatient (CLI) | payer MEDICARE ==
--- NOTE | 2020-02-14 17:03 | REP ---
INDICATION: SMOKING GREATER THAN 30 PACK YEARS. COMPARISON: 05/28/2018, 09/18/2017, 09/20/2016, and 06/30/2016. TECHNIQUE: Axial noncontrast images from the thoracic inlet to the upper abdomen using low-dose lung screening technique (LDCT). As per the protocol only lung window images were sent to the read station for interpretation. FINDINGS: There are no new abnormal nodules, masses, or opacities. Stable chronic lung field changes are again noted. There is cylindrical bronchiectasis. Grossly the mediastinum and pulmonary josias are unchanged. Grossly the imaged upper abdomen and imaged osseous structures are unchanged. There are no pleural or pericardial effusions. IMPRESSION: No significant change from the prior exams. Lung rads category 2 exam. <Electronically signed by Mynor Llanos > 02/14/20 [id number]
== END ==
LOC: M RAD 14:34
PROVIDERS: ATTEND Family Medicine
DX: Z12.2 Encounter for screening for malignant neoplasm of respiratory organs (principal); Z87.891 Personal history of nicotine dependence

== ENCOUNTER → 2020-05-15 | Outpatient (CLI) | payer MEDICARE ==
[~2020-05-15] MED LIST changes: +GABA-282 PO; -GABA-843 PO
[2020-05-15 16:03] LABS: HEMATOCRIT 37.8 % (36.0-47.0); HEMOGLOBIN 12.3 g/dl (12.0-15.5); MEAN CORPUSCULAR HEMOGLOBIN 30.9 pg (27.0-33.0); MEAN CORPUSCULAR HGB CONC 32.5 g/dl (32.0-36.5); PLATELET COUNT, AUTOMATED 238 10^3/uL (150-450); RED BLOOD COUNT 3.98 10^6/uL (4.00-5.40); WHITE BLOOD COUNT 6.5 10^3/uL (4.0-10.0)
[2020-05-15 16:40] LABS: ALBUMIN 3.7 GM/DL (3.2-5.2); BILIRUBIN,TOTAL 0.4 MG/DL (0.2-1.0); CALCIUM LEVEL 9.5 MG/DL (8.8-10.2); CHOLESTEROL RISK RATIO 7.941 (<5); CREATININE FOR GFR 1.03 MG/DL (0.55-1.30); GLOMERULAR FILTRATION RATE 55.9 (>39); POTASSIUM SERUM 3.7 MEQ/L (3.5-5.1); TOTAL PROTEIN 7.3 GM/DL (6.4-8.2)
== END ==
LOC: M LAB 15:46
PROVIDERS: ATTEND Family Medicine
DX: E78.00 Pure hypercholesterolemia, unspecified (principal); I10 Essential (primary) hypertension

== ENCOUNTER → 2020-07-08 | Outpatient (CLI) | payer MEDICARE ==
[2020-07-08 08:36] LABS: CHOLESTEROL RISK RATIO 5.108 (<5)
== END ==
LOC: M LAB 07:22
PROVIDERS: ATTEND Family Medicine
DX: E78.2 Mixed hyperlipidemia (principal)

== ENCOUNTER 2021-03-03 13:11 | Emergency (ER) | payer MEDICARE ==
[2021-03-03] MEDS ORDERED: ONDANSETRON 4MG/2ML VIAL IV ONE (14:25)
[2021-03-03] MEDS ORDERED: NS 1,000 ML IV ONE ×2 (14:25→17:35)
[2021-03-03] MEDS ORDERED: NORT10CA2 PO (14:42)
[2021-03-03] MEDS ORDERED: ATOR1TAB19 PO (14:42)
[2021-03-03 15:52] LABS: ALBUMIN 3.6 GM/DL (3.2-5.2); BILIRUBIN,DIRECT 0.2 MG/DL (0.0-0.2); BILIRUBIN,TOTAL 0.7 MG/DL (0.2-1.0); CALCIUM LEVEL 9.3 MG/DL (8.8-10.2); CREATININE FOR GFR 1.48 MG/DL (0.55-1.30); GLOMERULAR FILTRATION RATE 36.8 (>39); POTASSIUM SERUM 3.9 MEQ/L (3.5-5.1)
[2021-03-03] MEDS ORDERED: ISOVUE-370 76% 100ML VIAL As Ordered ONE (15:56)
[2021-03-03 15:59] LABS: BASO % 0.4 % (0.0-1.0); HEMATOCRIT 38.7 % (36.0-47.0); HEMOGLOBIN 12.8 g/dl (12.0-15.5); LYMPH # 0.5 10^3/uL (1.5-5.0); LYMPH % 9.8 % (24.0-44.0); MEAN CORPUSCULAR HGB CONC 33.1 g/dl (32.0-36.5); MEAN CORPUSCULAR VOLUME 90.8 fl (80.0-96.0); MONO # 0.2 10^3/uL (0.0-0.8); MONO % 4.2 % (2.0-8.0); NEUTROPHILS # 4.4 10^3/uL (1.5-8.5); NEUTROPHILS % 83.9 % (36.0-66.0); PLATELET COUNT, AUTOMATED 217 10^3/uL (150-450); RED BLOOD COUNT 4.26 10^6/uL (4.00-5.40); WHITE BLOOD COUNT 5.2 10^3/uL (4.0-10.0)
[2021-03-03] MEDS ORDERED: ONDA4TAB6 PO (21:15)
[2021-03-03] MEDS ORDERED: ONDANSETRON 4 MG ORAL DISINTEGRATING TAB PO ONE (21:20)
[2021-03-03] MEDS ORDERED: OXYCODONE/APAP 5MG/325MG(BULK FOR ED) 1 TABLET PO ONE (21:20)
[2021-03-03 22:33] VITALS: BP 147/69
== END 2021-03-03 22:37 | disposition home or self-care (01) ==
LOC: EDBD 13:11 → M ED 13:11
DX: R11.2 Nausea with vomiting, unspecified (principal); E86.0 Dehydration; I45.19 Other right bundle-branch block; I10 Essential (primary) hypertension; E78.5 Hyperlipidemia, unspecified; J44.9 Chronic obstructive pulmonary disease, unspecified; Z87.442 Personal history of urinary calculi; F17.200 Nicotine dependence, unspecified, uncomplicated; Z79.899 Other long term (current) drug therapy; Z88.8 Allergy status to other drugs, medicaments and biological substances
CPT/HCPCS: 36415; 71045; 74177; 76705; 80048; 80076; 81001; 83605; 83690; 85025; 93005; 93041; 96361; 96374; 99285; J2405; Q0162; Q9967

== ENCOUNTER → 2021-06-04 | Outpatient (CLI) | payer MEDICARE ==
[~2021-06-04] MED LIST changes: +ATOR1TAB19 PO; +NORT10CA2 PO; +ONDA4TAB6 PO
== END ==
LOC: M RAD 15:25
PROVIDERS: ATTEND Family Medicine
DX: F17.200 Nicotine dependence, unspecified, uncomplicated (principal); Z12.2 Encounter for screening for malignant neoplasm of respiratory organs; Z87.891 Personal history of nicotine dependence

== ENCOUNTER → 2022-08-23 | Outpatient (CLI) | payer MEDICARE ==
[2022-08-23 11:15] LABS: BASO % 0.4 % (0.0-1.0); EOS # 0.1 10^3/uL (0.0-0.5); EOS % 1.7 % (0.0-3.0); HEMATOCRIT 39.9 % (36.0-47.0); HEMOGLOBIN 13.6 g/dl (12.0-15.5); LYMPH # 2.7 10^3/uL (1.5-5.0); MEAN CORPUSCULAR HEMOGLOBIN 31.1 pg (27.0-33.0); MEAN CORPUSCULAR HGB CONC 34.1 g/dl (32.0-36.5); MEAN CORPUSCULAR VOLUME 91.3 fl (80.0-96.0); MONO # 0.7 10^3/uL (0.0-0.8); MONO % 8.4 % (2.0-8.0); NEUTROPHILS # 4.7 10^3/uL (1.5-8.5); NEUTROPHILS % 56.3 % (36.0-66.0); PLATELET COUNT, AUTOMATED 220 10^3/uL (150-450); RED BLOOD COUNT 4.37 10^6/uL (4.00-5.40); WHITE BLOOD COUNT 8.3 10^3/uL (4.0-10.0)
[2022-08-23 11:50] LABS: ALBUMIN 3.8 G/DL (3.2-5.2); ALKALINE PHOSPHATASE 77 U/L (46-116); ALT/SGPT < 9 U/L (7.0-40); AST/SGOT 20 U/L (<34); BILIRUBIN,TOTAL 0.5 MG/DL (0.3-1.2); BLOOD UREA NITROGEN 23 MG/DL (9-23); CALCIUM LEVEL 9.2 MG/DL (8.3-10.6); CARBON DIOXIDE LEVEL 28 MMOL/L (20-31); CHLORIDE LEVEL 102 MMOL/L (98-107); CREATININE FOR GFR 1.37 MG/DL (0.55-1.30); GLUCOSE, FASTING 92 MG/DL (74-106); POTASSIUM SERUM 3.7 MMOL/L (3.5-5.1); SODIUM LEVEL 139 MMOL/L (136-145); TOTAL PROTEIN 7.1 G/DL (5.7-8.2)
== END ==
LOC: M LAB 10:24
PROVIDERS: ATTEND Family Medicine
DX: M1A.0720 Idiopathic chronic gout, left ankle and foot, without tophus (tophi) (principal)

== ENCOUNTER → 2022-09-30 | Outpatient (CLI) | payer MEDICARE | LOC: M RAD 06:43 | PROVIDERS: ATTEND Family Medicine | DX: F17.210 Nicotine dependence, cigarettes, uncomplicated (principal) ==

== ENCOUNTER → 2023-02-03 | Outpatient (CLI) | payer MEDICARE | LOC: M CLY 14:49 | PROVIDERS: ATTEND Family Medicine | DX: J40 Bronchitis, not specified as acute or chronic (principal); J44.1 Chronic obstructive pulmonary disease with (acute) exacerbation ==

== ENCOUNTER → 2023-02-28 | Outpatient (CLI) | payer MEDICARE | LOC: M PLAIMG 11:28 | PROVIDERS: ATTEND Family Medicine | DX: R10.33 Periumbilical pain (principal) ==

== ENCOUNTER → 2023-07-03 | Outpatient (CLI) | payer MEDICARE | LOC: M PLAIMG 08:23 | PROVIDERS: ATTEND Family Medicine | DX: M23.92 Unspecified internal derangement of left knee (principal) ==

== ENCOUNTER → 2024-01-05 | Outpatient (CLI) | payer MEDICARE ==
[~2024-01-05] MED LIST changes: +ONDA-282 PO; -ONDA4TAB6 PO
== END ==
LOC: M RAD 10:18
PROVIDERS: ATTEND Family Medicine
DX: Z12.2 Encounter for screening for malignant neoplasm of respiratory organs (principal); F17.210 Nicotine dependence, cigarettes, uncomplicated; R91.8 Other nonspecific abnormal finding of lung field

== ENCOUNTER → 2024-06-20 | Outpatient (CLI) | payer MEDICARE ==
[~2024-06-20] MED LIST changes: +GABA-1172 PO; -GABA-282 PO
[2024-06-20 14:33] LABS: HEMOGLOBIN A1c 5.5 % (4.0-6.0)
[2024-06-20 14:37] LABS: ALBUMIN 3.2 G/DL (3.2-5.2); BILIRUBIN,TOTAL 0.2 MG/DL (0.3-1.2); CALCIUM LEVEL 8.9 MG/DL (8.3-10.6); CHOLESTEROL RISK RATIO 4.48 (<5); CREATININE FOR GFR 1.24 MG/DL (0.55-1.30); GLOMERULAR FILTRATION RATE 44.7 (>39); HDL CHOLESTEROL 33.9 MG/DL (>40); LDL CHOLESTEROL 92.9 MG/DL (<100); NON-HDL-C 118.1 MG/DL; POTASSIUM SERUM 3.9 MMOL/L (3.5-5.1); TOTAL PROTEIN 6.6 G/DL (5.7-8.2)
[2024-06-20 14:38] LABS: FREE T4 1.13 NG/DL (0.89-1.76); THYROID STIMULATING HORMONE 2.353 uIU/ML (0.55-4.78)
== END ==
LOC: M LAB 13:14
PROVIDERS: ATTEND Physician Assistant
DX: I10 Essential (primary) hypertension (principal)

== ENCOUNTER → 2024-06-25 | Outpatient (CLI) | payer MEDICARE | LOC: M WHC 12:19 | PROVIDERS: ATTEND Physician Assistant | DX: N95.8 Other specified menopausal and perimenopausal disorders (principal) ==

== ENCOUNTER → 2024-07-03 | Outpatient (CLI) | payer MEDICARE | LOC: M PLAIMG 08:51 | PROVIDERS: ATTEND Physician Assistant | DX: K57.30 Diverticulosis of large intestine without perforation or abscess without bleeding (principal) ==

== ENCOUNTER 2024-11-04 13:12 | Emergency (ER) | payer MEDICARE ==
[~2024-11-04] VITALS: Ht 154.9 cm; Wt 53.6 kg
[~2024-11-04 13:12] MED LIST changes: -PRAV20TA2 PO; +PRAV20TA78 PO
[2024-11-04 13:43] LABS: VENOUS BASE EXCESS -0.7 (-2.0-2.0); VENOUS HCO3 25.5 MMOL/L (23.0-27.0); VENOUS O2 SATURATION 72.9 % (60.0-80.0); VENOUS PARTIAL PRESSURE CO2 47.9 mmHg (38.0-50.0); VENOUS PARTIAL PRESSURE O2 38.8 mmHg (30.0-50.0); VENOUS PH 7.344 UNITS (7.330-7.430); VENOUS STANDARD HCO3 23.3 MMOL/L; VENOUS TOTAL CO2 27.0 MMOL/L (24.0-28.0)
[2024-11-04] MEDS: NS (Normal Saline) 0.9% 1,000 ML IV ONE (13:44)
[2024-11-04 14:05] LABS: BASO # 0.1 10^3/uL (0.0-0.2); BASO % 0.5 % (0.0-1.0); EOS # 0.2 10^3/uL (0.0-0.5); EOS % 1.6 % (0.0-3.0); LYMPH # 2.6 10^3/uL (1.5-5.0); LYMPH % 28.2 % (24.0-44.0); MONO # 0.8 10^3/uL (0.0-0.8); MONO % 8.8 % (2.0-8.0); NEUTROPHILS # 5.6 10^3/uL (1.5-8.5); NEUTROPHILS % 60.6 % (36.0-66.0); PLATELET COUNT, AUTOMATED 191 10^3/uL (150-450)
[2024-11-04 14:29] LABS: OSMOLALITY SERUM 302.0 MOSM/KG (280-301)
[2024-11-04] MEDS ORDERED: CARV12.5 PO (14:35)
[2024-11-04] MEDS ORDERED: OMEP40CA5 PO (14:35)
[2024-11-04] MEDS ORDERED: HYDR-3490 PO (14:35)
[2024-11-04] MEDS ORDERED: TELM1TAB35 PO (14:35)
[2024-11-04] MEDS ORDERED: GABA-1490 PO (14:35)
[2024-11-04 14:40] LABS: ALT/SGPT 12.0 U/L (7.0-40); AST/SGOT 24.0 U/L (<34); CALCIUM LEVEL 9.0 MG/DL (8.3-10.6); CARBON DIOXIDE LEVEL 29.0 MMOL/L (20-31); CHLORIDE LEVEL 102.0 MMOL/L (98-107); CREATININE FOR GFR 1.33 MG/DL (0.55-1.30); GLOMERULAR FILTRATION RATE 41.2 (>39); POTASSIUM SERUM 3.6 MMOL/L (3.5-5.1); SODIUM LEVEL 143.0 MMOL/L (136-145)
[2024-11-04] MEDS ORDERED: HOME MED LIST COMPLETE! XX SCH (14:40)
[2024-11-04 17:45] VITALS: BP 150/71; TEMP 97.5; O2SAT 97
== END 2024-11-04 18:08 | disposition home or self-care (01) ==
LOC: M ED 13:12
DX: E86.0 Dehydration (principal); T58.8X1A Toxic effect of carbon monoxide from other source, accidental (unintentional), initial encounter; I45.10 Unspecified right bundle-branch block; J44.9 Chronic obstructive pulmonary disease, unspecified; E78.5 Hyperlipidemia, unspecified; I10 Essential (primary) hypertension; Z85.51 Personal history of malignant neoplasm of bladder; Z88.8 Allergy status to other drugs, medicaments and biological substances; Z79.899 Other long term (current) drug therapy

== ENCOUNTER → 2025-02-20 | Outpatient (CLI) | payer MEDICARE ==
[~2025-02-20] MED LIST changes: +CARV12.5 PO; +GABA-1490 PO; +HYDR-3490 PO; +OMEP40CA5 PO; +TELM1TAB35 PO
[2025-02-20 11:22] LABS: ALT/SGPT 12.0 U/L (7.0-40); AST/SGOT 19.0 U/L (<34); CALCIUM LEVEL 9.4 MG/DL (8.3-10.6); CARBON DIOXIDE LEVEL 31.0 MMOL/L (20-31); CHLORIDE LEVEL 106.0 MMOL/L (98-107); CHOLESTEROL LEVEL 181.0 MG/DL (<200); CHOLESTEROL RISK RATIO 4.66 (<5); CREATININE FOR GFR 1.12 MG/DL (0.55-1.30); GLOMERULAR FILTRATION RATE 50.7 (>39); LDL CHOLESTEROL 116.4 MG/DL (<100); NON-HDL-C 142.2 MG/DL; POTASSIUM SERUM 3.7 MMOL/L (3.5-5.1); SODIUM LEVEL 142.0 MMOL/L (136-145); TRIGLYCERIDES LEVEL 129.0 MG/DL (<150)
[2025-02-20 11:24] LABS: FREE T4 1.23 NG/DL (0.89-1.76)
[2025-02-20 11:28] LABS: ESTIMATED AVERAGE GLUCOSE 114.0 MG/DL (60-110)
[2025-02-24 15:07] LABS: BARBITURATES SCREEN, URINE Negative ng/mL (Cutoff=200); BENZODIAZEPINES, URINE SCREEN Negative ng/mL (Cutoff=200); CANNABINOID, URINE Positive (Cutoff=20); CARBOXY THC (GC/MS) >300 ng/mL (Cutoff=10); CREATININE, URINE 207.0 mg/dL (20.0-300.0); METHADONE, URINE SCREEN Negative ng/mL (Cutoff=300); OPIATE SCREEN, URINE Negative ng/mL (Cutoff=300); OXYCODONE, SCREEN, URINE Negative ng/mL (Cutoff=100); PCP SCREEN, URINE Negative ng/mL (Cutoff=25)
== END ==
LOC: M LAB 09:29
PROVIDERS: ATTEND Physician Assistant
DX: R14.0 Abdominal distension (gaseous) (principal); M54.40 Lumbago with sciatica, unspecified side; Z12.11 Encounter for screening for malignant neoplasm of colon; M81.0 Age-related osteoporosis without current pathological fracture; J41.0 Simple chronic bronchitis; E78.00 Pure hypercholesterolemia, unspecified; C67.9 Malignant neoplasm of bladder, unspecified; Z87.891 Personal history of nicotine dependence

== ENCOUNTER → 2025-03-24 | Outpatient (CLI) | payer MEDICARE | LOC: M RAD 06:33 | PROVIDERS: ATTEND Physician Assistant | DX: Z87.891 Personal history of nicotine dependence (principal) ==